=== PATIENT | female | born 1995 | race Caucasian/White ===

== ENCOUNTER → 2016-08-13 | Outpatient (CLI) | payer BC ==
--- NOTE | 2016-08-13 12:43 | KCIC ---
PROCEDURE Neck sonogram. HISTORY Lump at base of neck. TECHNIQUE Sonographic imaging of the neck at the site of palpable concern was performed. COMPARISON None. FINDINGS There is prominent fat within the posterior base of the neck at the site of palpable concern. No suspicious lesion is seen. IMPRESSION Prominent fat within the posterior base of the neck at the site of palpable concern, most suggestive of hypertrophy of the posterior neck fat pad (buffalo hump). No suspicious lesion is seen within this location. Continued clinical followup of palpable abnormalities is recommended. Neck CT can be performed if there is continuing concern. Electronically signed by: Nenita Ohara (Aug 13, 2016 12:41:41)
== END | disposition home or self-care (01) ==
LOC: KCIC US 12:13
PROVIDERS: ATTEND Family Medicine
DX: R22.1 Localized swelling, mass and lump, neck (principal)
CPT/HCPCS: 76536